=== PATIENT | female | born 1980 | race Caucasian/White ===

== ENCOUNTER → 2016-08-18 | Outpatient (CLI) | payer BC ==
[~2016-08-18] MED LIST: DIPH25CA84 PO; HYDR25TA85 PO; IOHEXOL 180 MG/ML 20ml INJECTION ONE; [UNRECOGNIZED DRUG - CODE] PO
--- NOTE | 2016-08-18 16:38 | DI ---
Indication:ITS.REASON: N92.6 Irregular menstruation, unspecified Procedure:HYSTEROSALPINGOGRAM W/CONTRAST HYSTEROSALPINGOGRAM: Informed consent was obtained prior to the procedure. All of her questions were answered. She stated that she understood and wished to proceed. A hysterosalpingogram was then performed without complication. Following this the patient left the radiology department in good condition. Findings: A 5 [place] HSG catheter was advanced into the cervix with a mild amount of difficulty. The right fallopian tube is not visualized during this exam. I was unable to get contrast to flow past the right uterine horn. This is suggestive of an obstruction near the isthmus of the right fallopian tube. The remainder of the HSG is negative. There is immediate filling of the left fallopian tube. Contrast spills freely from the left tube into the peritoneal cavity. The left tube is not dilated. The intrauterine contour is normal in appearance. Impression: Findings suggestive of a right fallopian tube obstruction. Fluoroscopy dose: 18.65 mGy (Cumulative air kerma) Jamar Saravia RPA/AMY performed this under my personal supervision. .
== END ==
LOC: IMA 08:12
PROVIDERS: ATTEND Obstetrics & Gynecology
DX: N92.6 Irregular menstruation, unspecified (principal); R93.8 Abnormal findings on diagnostic imaging of other specified body structures
CPT/HCPCS: 36415; 58340; 74740; 84703; Q9965